=== PATIENT | female | born 1985 | race Caucasian/White ===

== ENCOUNTER 2020-12-25 14:45 | Outpatient (CLI) | payer OTHER, SELFPAY ==
--- NOTE | 2020-12-25 14:54 | XR_ITS ---
WS: [id number] Exam: XR thoracic spine 3V* [id number] Date/Time of Exam: 12/25/2020 3:03 PM Reason For Exam: pain and injury No acute fracture or dislocation. Slight dextroscoliosis. Paraspinal soft tissues are unremarkable. XR/XR thoracic spine 3V* [id number] IMPRESSION: 1. Slight scoliosis otherwise negative T-spine study.
== END 2020-12-25 14:46 | disposition home or self-care (01) ==
LOC: RAD 14:49
PROVIDERS: PCP Family Medicine; Visit Provider Nurse Practitioner
DX: M41.84 Other forms of scoliosis, thoracic region (principal)
CPT/HCPCS: 72072

== ENCOUNTER 2023-03-19 12:44 | Emergency (ER) | payer OTHER, SELFPAY ==
[2023-03-19 13:06] VITALS: BP 131/79; PULSE 82; RESP 16; TEMP 36.7; O2SAT 100
--- NOTE | 2023-03-19 13:16 | XRR_ITS ---
PROCEDURE INFORMATION: Exam: XR Right Wrist Exam date and time: 03/19/2023 1:22 PM Age: 37 years old Clinical indication: Injury or trauma; Fall; Blunt trauma (contusions or hematomas); Wrist; Right TECHNIQUE: Imaging protocol: Radiologic exam of the right wrist. Views: 3 or more views. COMPARISON: No relevant prior studies available. FINDINGS: Bones/joints: Osseous structures are intact. No fracture or malalignment. Visualized joint surfaces are preserved. Soft tissues: Unremarkable. XR/XR wrist RT min 3V* [id number] IMPRESSION: Negative exam. No acute bony abnormalities.
--- NOTE | 2023-03-19 13:16 | W.ED.UPPEXIN ---
HPI - Extremity Injury (Upper) General: Chief Complaint: Extremity Injury, Upper Stated Complaint: right wrist injury, WC Time Seen by Provider: 03/19/23 13:12 Source: patient Mode of arrival: ambulatory Limitations: no limitations History of Present Illness: Patient is a 37-year-old female presents to ED today with complaint of pain and bruising to her right forearm that she sustained yesterday when she went to grab a pole and accidentally struck the pole with the forearm. This reportedly is a workers comp injury. complaint: injury to: right and forearm Onset (ago): day(s) (yesterday) Other Extremity Injury: Right: forearm Other injuries: none Place: work Severity: mild Relieving factors: none Exacerbating factors: none Context: direct blow Associated symptoms: Denies weakness in extremities Review of Systems Musc: Reports: extremity pain (R forearm); Denies: extremity swelling, joint pain or joint swelling Neuro: Denies: numbness in extremities, weakness in extremities or sensory changes [facility] ED PFSH: Medical History Low back strain Social History Smoking and tobacco status: current some day smoker Physical Exam Const: COMMON NORMALS: no acute distress, average body habitus, patient oriented x3, no limitations, alert and well nourished Extremity: COMMON NORMALS: full ROM, capillary refill normal, no joint enlargement, no clubbing, cyanosis or edema, no calf tenderness and no pedal edema RIGHT UPPER EXTREMITY: Yes lower arm Right lower arm: Yes neurovascular exam (normal) and Yes wrist Right wrist: Yes ROM (normal) and Yes neurovascular exam (normal) EXTREMITY IMAGE (FRONT): 1. small amount of ecchymosis Neuro: COMMON NORMALS: patient oriented x3, moves all extremities, no focal motor deficits and no sensory deficits noted SENSORIUM/ORIENTATION: Yes alert Course Vital Signs: Vital signs: Vital Signs Temperature 98.0 F 03/19/23 13:06 Pulse Rate 82 03/19/23 13:06 Respiratory Rate 16 03/19/23 13:06 Blood Pressure 131/79 03/19/23 13:06 Pulse Oximetry 100 03/19/23 13:06 Oxygen Delivery Me thod Room Air 03/19/23 13:06 MDM - Extremity Injury (Upper) Medical Decision Making XR normal. Will follow up with Worker's Comp. Discharge Plan Discharge Patient Disposition: Home Clinical Impression: Contusion of forearm Qualifiers: Encounter type: initial encounter Laterality: right Qualified Code(s): S50.11XA - Contusion of right forearm, initial encounter Condition: Stable Prescriptions: No Action naproxen [Naprosyn] 500 mg tablet 500 mg PO BID Qty: 60 1RF Discharge Orders: Discharge ED (Routine); Ordered 03/19/23 Ordered By: Amarilis Hutson Referrals: Williams Madrid MD [Primary Care Provider] - Patient Instructions: Contusion Coding Level of Care Code ED Deposition Reporter for Nasra Deluca
== END 2023-03-19 14:37 | disposition home or self-care (01) ==
PROVIDERS: Emergency Provider Physician Assistant; PCP Family Medicine
DX: S50.11XA Contusion of right forearm, initial encounter (principal); F17.210 Nicotine dependence, cigarettes, uncomplicated; W22.8XXA Striking against or struck by other objects, initial encounter
CPT/HCPCS: 73110; 99283

== ENCOUNTER 2024-03-25 21:43 | Emergency (ER) | payer OTHER, SELFPAY ==
[2024-03-25 21:56] VITALS: BP 147/86; PULSE 71; RESP 17; TEMP 36.7; O2SAT 100; BMI 23.5
--- NOTE | 2024-03-25 22:11 | XRR_ITS ---
PROCEDURE INFORMATION: Exam: XR Right Wrist Exam date and time: 03/25/2024 10:43 PM Age: 38 years old Clinical indication: Pain; Wrist; Right; Additional info: RT wrist pain after feeling pop TECHNIQUE: Imaging protocol: Radiologic exam of the right wrist. Views: 3 or more views. COMPARISON: No relevant prior studies available. FINDINGS: Bones/joints: Normal. Soft tissues: Normal. XR/XR wrist RT min 3V* [id number] IMPRESSION: No acute findings.
--- NOTE | 2024-03-25 23:15 | W.ED.EXTPRO ---
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 She felt a pop in her right wrist. She has swelling now. No numbness or tingling. No impact injury. Associated symptoms: Deny chest pain or fever(s) Review of Systems Const: Denies: fever(s) Card: Denies: chest pain Resp: Denies: dyspnea GI: Denies: abdominal pain PFSH ED PFSH: Medical History Low back strain Social History Smoking and tobacco/nicotine status: current some day tobacco/nicotine user Physical Exam Const: GENERAL APPEARANCE: cooperative; not ill appearing HENMT: COMMON NORMALS: normocephalic HEAD & SCALP: normocephalic EXTERNAL EAR: Yes external ear abnormal Chest: CHEST: Yes Symmetrical chest wall rise Cardio: COMMON NORMALS: regular rate and regular rhythm RATE: regular rate RHYTHM: regular rhythm Extremity: NARRATIVE EXTREMITY EXAM: Swelling of the dorsum of the hand and wrist. There is tenderness to palpation over the first and second carpal row. No deformity. Course Vital Signs: Vital signs: Vital Signs Temperature 98.1 F 03/25/24 21:56 Pulse Rate 72 03/25/24 23:53 Respiratory Rate 16 03/25/24 23:53 Blood Pressure 147/86 03/25/24 21:56 Pulse Oximetry 98 03/25/24 23:53 Oxygen Delivery Me thod Room Air 03/25/24 21:56 MDM - Extremity (Nontraumatic) Medical Decision Making The patient does have objective swelling to the dorsum of the wrist and hand, less so to the palmar surface. Lab Data Radiology Impressions Wrist X-Ray 03/25/24 22:11 IMPRESSION: No acute findings. Laboratory Results Urine Opiates Screen Negative ng/mL (Negative) 03/25/24 23:00 Ur Barbiturates Screen Negative ng/mL (Negative) 03/25/24 23:00 Ur Phencyclidine Scrn Negative ng/mL (Negative) 03/25/24 23:00 Ur Amphetamines Screen Negative ng/mL (Negative) 03/25/24 23:00 U Benzodiazepines Scrn Negative ng/mL (Negative) 03/25/24 23:00 Urine Cocaine Screen Negative ng/mL (Negative) 03/25/24 23:00 U Marijuana (THC) Screen Negative ng/mL (Negative) 03/25/24 23:00 All radiology interpretation(s) finalized by discharge Discharge Plan Discharge Patient Disposition: Home Clinical Impression: Sprain and strain of wrist Condition: Stable Prescriptions: New ketorolac 10 mg tablet 10 mg PO TID PRN (Reason: pain) Qty: 10 0RF Discontinued naproxen [Naprosyn] 500 mg tablet 500 mg PO BID Qty: 60 1RF Discharge Orders: Discharge ED (Routine); Ordered 03/25/24 Ordered By: Bryan Chacon Referrals: Williams Madrid MD [Primary Care Provider] - 4-7 days Patient Instructions: Wrist Sprain (ED), Opioid Safety, Pain Management Activity Restrictions/Additional Instructions: Brace the wrist with any activity x 1 week. See your doctor in follow-up. Medication as needed for pain. Ice will help, particularly in the first 48 hours. Return for any problems. Coding Level of Care Code ED Talent Acquisition Assistant for Nasra Deluca
[2024-03-25 23:22] LABS: Amphetamines Screen Urine Negative (Negative); Barbiturates Screen Urine Negative (Negative); Benzodiazepines Screen Urine Negative (Negative); Cocaine Screen Urine Negative (Negative); PCP Screen Urine Negative (Negative); THC Screen Urine Negative (Negative)
--- NOTE | 2024-03-25 23:35 | PC.NURSE ---
Pt sent home with 2xtabs 5/[address] Chacon's orders.
[2024-03-25 23:38] LABS: Opiate Screen Urine Negative (Negative)
[2024-03-25 23:53] VITALS: PULSE 72; RESP 16; O2SAT 98
== END 2024-03-25 23:40 | disposition home or self-care (01) ==
PROVIDERS: Emergency Provider Emergency Medicine; PCP Family Medicine
DX: S63.501A Unspecified sprain of right wrist, initial encounter (principal); S66.911A Strain of unspecified muscle, fascia and tendon at wrist and hand level, right hand, initial encounter; Z72.0 Tobacco use; X50.0XXA Overexertion from strenuous movement or load, initial encounter; Y93.F2 Activity, caregiving, lifting; Y99.0 Civilian activity done for income or pay
CPT/HCPCS: 73110; 80306; 99283

== ENCOUNTER 2025-05-20 08:59 | Observation (INO) | payer OTHER, SELFPAY ==
[2025-05-20 09:15] VITALS: BP 120/76; PULSE 86; RESP 17; TEMP 36.7; O2SAT 100; BMI 24.7
--- NOTE | 2025-05-20 09:21 | W.ED.SKABFB ---
Documented by User: PRECIOUS Colvin 05/20/25 10:47 HPI - Skin/Abscess/Foreign Bdy General: Chief complaint: Skin/Abscess/Foreign Body Stated complaint: Blister on Left Boob Time Seen by Provider: 05/20/25 09:01 Source: patient Mode of arrival: ambulatory Limitations: no limitations History of Present Illness: Patient is a 39-year-old female presents to ED today for evaluation of a left breast abscess. She began noticing symptoms last week and was placed on Bactrim on Tuesday. She has been compliant with this medication and has been on this over the past 48 hours and is continuing to fail outpatient therapy. She was seen back at the walk-in clinic today and referred to the emergency department. She did report an nipple piercing 2 months ago but has not had any issues with it until now. MD complaint: abscess/boil Onset (ago): day(s) Tetanus up to date: yes Location: chest (L breast) Severity: severe Pain Consistency: constant Relieving factors: none Exacerbating factors: none Associated symptoms: Deny chills, fever(s), nausea or vomiting Treatments prior to arrival: antibiotic Related Data Home Medications ?Medication ?Instructions ?Recorded ?Confirmed ibuprofen 200 mg tablet (Advil) 600 mg PO Q6H PRN Pain 05/20/25 05/20/25 sulfamethoxazole 800 1 tab PO Q12H 05/20/25 05/20/25 mg-trimethoprim 160 mg tablet Allergies Allergy/AdvReac Type Severity Reaction Status Date / Time Influenza Virus Vaccines Allergy ADR-Vomitin Verified 05/20/25 09:20 g Review of Systems Const: Denies: fever(s), chills, body aches, fatigue or malaise GI: Denies: nausea or vomiting Skin/Breast: Reports: breast pain and breast swelling (L breast abscess) [facility] ED PFSH: Medical History Low back strain Social History Smoking and tobacco/nicotine status: current some day tobacco/nicotine user Physical Exam Const: COMMON NORMALS: no acute distress, average body habitus, patient oriented x3, no limitations, healthy appearing, alert and well nourished Chest: BREAST/AXILLA PALPATION: Yes breast lump (abscess) NIPPLE/AREOLA: Yes nipple abnormal and Yes areola abnormal OTHER: pt has a significant abscess and surrounding cellulitis to her L breast; she does have a nipple piercing; most fluctuant region is her medial areola; no active drainage; large amount of induration Resp: COMMON NORMALS: normal respiratory effort and clear to auscultation bilaterally AUSCULTATION: clear to auscultation bilaterally Cardio: COMMON NORMALS: regular rate and regular rhythm RATE: regular rate RHYTHM: regular rhythm Neuro: COMMON NORMALS: patient oriented x3 SENSORIUM/ORIENTATION: Yes alert Skin: NARRATIVE SKIN EXAM: see above Course Consultations: Consultation #1: Dr. Pike-requesting to see if IR can drain abscess; will admit to hospital for IV abx following this Consultation #2: Dr. Justice-will drain abscess here in ED Vital Signs: Vital signs: Vital Signs Temperature 97.9 F 05/20/25 12:14 Pulse Rate 82 05/20/25 12:14 Respiratory Rate 16 05/20/25 12:14 Blood Pressure 101/65 05/20/25 12:14 Pulse Oximetry 99 05/20/25 12:14 Oxygen Delivery Me thod Room Air 05/20/25 12:14 MDM - Skin/Abscess/Foreign Bdy Medicial Decision Making Patient is a 39-year-old female here for a significant left sided breast abscess. She has failed outpatient therapy with oral Bactrim. Spoke to general surgery who is requesting that IR attempt to drain. Dr. Justice kindly will come and evaluate patient here in the emergency department and attempt drainage. Dr. Bridges will admit for IV antibiotics. Medical Records I reviewed the patient's medical records. Lab Data I reviewed the patient's lab results. 05/20/25 09:56 05/20/25 09:56 Radiology Impressions Breast Ultrasound 05/20/25 09:32 IMPRESSION: Subareolar LEFT breast abscess. Recommend follow-up to resolution. Aspiration is pending. ADDENDUM: 05/20/25 1118 IMPRESSION: Ultrasound-guided aspiration of the LEFT breast abscess with 10-12 cc of bloody purulent fluid aspirated Cyst Aspiration Ultrasound 05/20/25 10:10 IMPRESSION: Ultrasound-guided aspiration of the LEFT breast abscess with 10-12 cc of bloody purulent fluid aspirated Laboratory Results WBC 11.92 10^3/uL (3.29-11.43) H 05/20/25 09:56 RBC 3.61 10^6/uL (3.85-5.65) L 05/20/25 09:56 Hgb 12.00 g/dL (11.27-16.99) 05/20/25 09:56 Hct 35.8 % (36-47) L 05/20/25 09:56 MCV 99.2 fl (85-98) H 05/20/25 09:56 MCH 33.2 pg (27-33) H 05/20/25 09:56 MCHC 33.5 g/dL (30-55) 05/20/25 09:56 RDW 12.5 % (12.1-15.1) 05/20/25 09:56 Plt Count 239 10^3/cmm (157-399) 05/20/25 09:56 MPV 10.9 fL (7.4-10.4) H 05/20/25 09:56 Neut % (Auto) 85.0 % 05/20/25 09:56 Lymph % (Auto) 9.1 % 05/20/25 09:56 Swisher % (Auto) 4.4 % 05/20/25 09:56 Eos % (Auto) 0.8 % 05/20/25 09:56 Baso % (Auto) 0.3 % 05/20/25 09:56 Neut # (Auto) 10.14 10^3/uL (1.8-7.7) H 05/20/25 09:56 Lymph # (Auto) 1.1 10^3/uL (0.8-4.8) 05/20/25 09:56 Swisher # (Auto) 0.5 10^3/uL (0.2-0.9) 05/20/25 09:56 Eos # (Auto) 0.1 10^3/uL (0.0-0.8) 05/20/25 09:56 Baso # (Auto) 0.0 10^3/uL (0.0-0.1) 05/20/25 09:56 Nucleated RBC % (auto) 0 % 05/20/25 09:56 Nucleated RBCs # 0.0 /100WBC 05/20/25 09:56 Sodium 137 mmol/L (136-145) 05/20/25 09:56 Potassium 3.6 mmol/L (3.5-5.1) 05/20/25 09:56 Chloride 102 mmol/L (98-107) 05/20/25 09:56 Carbon Dioxide 20 mmol/L (22-29) L 05/20/25 09:56 Anion Gap 18.6 (5-19) 05/20/25 09:56 BUN 8 mg/dL (6-20) 05/20/25 09:56 Creatinine 0.7 mg/dL (0.5-0.9) 05/20/25 09:56 GFR Calculation 93.2 mL/min (90-130) 05/20/25 09:56 Glucose 87 mg/dL (65-115) 05/20/25 09:56 Calculated Osmolality 282 mOsm/kg (285-295) L 05/20/25 09:56 Calcium 9.0 mg/dL (8.5-10.5) 05/20/25 09:56 Total Bilirubin 0.7 mg/dL (0.15-1.2) 05/20/25 09:56 AST 11 U/L (0-32) 05/20/25 09:56 ALT 8 U/L (0-33) 05/20/25 09:56 Alkaline Phosphatase 149 U/L (35-105) H 05/20/25 09:56 C-Reactive Protein 46.7 mg/L (0.0-4.9) H 05/20/25 09:56 Total Protein 7.8 g/dL (6.6-8.7) 05/20/25 09:56 Albumin 4.1 g/dL (3.5-5.2) 05/20/25 09:56 Globulin 3.7 g/dL (1.3-4.6) 05/20/25 09:56 All radiology interpretation(s) finalized by discharge Discharge Plan Discharge Patient Disposition: Placed in Observation Admit Provider: Stan Bridges Clinical Impression: Abscess of left breast Coding Level of Care Code ED Drama Professor for Chg Fwd Documented by User: Ozzy Garcia DO 05/20/25 13:20 HPI - Skin/Abscess/Foreign Bdy General: Chief complaint: Skin/Abscess/Foreign Body Stated complaint: Blister on Left Boob Time Seen by Provider: 05/20/25 09:01 Related Data Home Medications ?Medication ?Instructions ?Recorded ?Confirmed ibuprofen 200 mg tablet (Advil) 600 mg PO Q6H PRN Pain 05/20/25 05/20/25 sulfamethoxazole 800 1 tab PO Q12H 05/20/25 05/20/25 mg-trimethoprim 160 mg tablet Allergies Allergy/AdvReac Type Severity Reaction Status Date / Time Influenza Virus Vaccines Allergy ADR-Vomitin Verified 05/20/25 09:20 g PFSH ED PFSH: Medical History Low back strain Social History Smoking and tobacco/nicotine status: current some day tobacco/nicotine user Course Vital Signs: Vital signs: Vital Signs Temperature 97.9 F 05/20/25 12:14 Pulse Rate 82 05/20/25 12:14 Respiratory Rate 16 05/20/25 12:14 Blood Pressure 101/65 05/20/25 12:14 Pulse Oximetry 99 05/20/25 12:14 Oxygen Delivery Me thod Room Air 05/20/25 12:14 MDM - Skin/Abscess/Foreign Bdy Medicial Decision Making Patient is a 39-year-old female here for a significant left sided breast abscess. She has failed outpatient therapy with oral Bactrim. Spoke to general surgery who is requesting that IR attempt to drain. Dr. Vinh ornelas will come and evaluate patient here in the emergency department and attempt drainage. Dr. Bridges will admit for IV antibiotics. Chart reviewed and patient discussed with midlevel. Agree with assessment and plan. Lab Data 05/20/25 09:56 05/20/25 09:56 Radiology Impressions Breast Ultrasound 05/20/25 09:32 IMPRESSION: Subareolar LEFT breast abscess. Recommend follow-up to resolution. Aspiration is pending. ADDENDUM: 05/20/25 1118 IMPRESSION: Ultrasound-guided aspiration of the LEFT breast abscess with 10-12 cc of bloody purulent fluid aspirated Cyst Aspiration Ultrasound 05/20/25 10:10 IMPRESSION: Ultrasound-guided aspiration of the LEFT breast abscess with 10-12 cc of bloody purulent fluid aspirated Laboratory Results WBC 11.92 10^3/uL (3.29-11.43) H 05/20/25 09:56 RBC 3.61 10^6/uL (3.85-5.65) L 05/20/25 09:56 Hgb 12.00 g/dL (11.27-16.99) 05/20/25 09:56 Hct 35.8 % (36-47) L 05/20/25 09:56 MCV 99.2 fl (85-98) H 05/20/25 09:56 MCH 33.2 pg (27-33) H 05/20/25 09:56 MCHC 33.5 g/dL (30-55) 05/20/25 09:56 RDW 12.5 % (12.1-15.1) 05/20/25 09:56 Plt Count 239 10^3/cmm (157-399) 05/20/25 09:56 MPV 10.9 fL (7.4-10.4) H 05/20/25 09:56 Neut % (Auto) 85.0 % 05/20/25 09:56 Lymph % (Auto) 9.1 % 05/20/25 09:56 Swisher % (Auto) 4.4 % 05/20/25 09:56 Eos % (Auto) 0.8 % 05/20/25 09:56 Baso % (Auto) 0.3 % 05/20/25 09:56 Neut # (Auto) 10.14 10^3/uL (1.8-7.7) H 05/20/25 09:56 Lymph # (Auto) 1.1 10^3/uL (0.8-4.8) 05/20/25 09:56 Swisher # (Auto) 0.5 10^3/uL (0.2-0.9) 05/20/25 09:56 Eos # (Auto) 0.1 10^3/uL (0.0-0.8) 05/20/25 09:56 Baso # (Auto) 0.0 10^3/uL (0.0-0.1) 05/20/25 09:56 Nucleated RBC % (auto) 0 % 05/20/25 09:56 Nucleated RBCs # 0.0 /100WBC 05/20/25 09:56 Sodium 137 mmol/L (136-145) 05/20/25 09:56 Potassium 3.6 mmol/L (3.5-5.1) 05/20/25 09:56 Chloride 102 mmol/L (98-107) 05/20/25 09:56 Carbon Dioxide 20 mmol/L (22-29) L 05/20/25 09:56 Anion Gap 18.6 (5-19) 05/20/25 09:56 BUN 8 mg/dL (6-20) 05/20/25 09:56 Creatinine 0.7 mg/dL (0.5-0.9) 05/20/25 09:56 GFR Calculation 93.2 mL/min (90-130) 05/20/25 09:56 Glucose 87 mg/dL (65-115) 05/20/25 09:56 Calculated Osmolality 282 mOsm/kg (285-295) L 05/20/25 09:56 Calcium 9.0 mg/dL (8.5-10.5) 05/20/25 09:56 Total Bilirubin 0.7 mg/dL (0.15-1.2) 05/20/25 09:56 AST 11 U/L (0-32) 05/20/25 09:56 ALT 8 U/L (0-33) 05/20/25 09:56 Alkaline Phosphatase 149 U/L (35-105) H 05/20/25 09:56 C-Reactive Protein 46.7 mg/L (0.0-4.9) H 05/20/25 09:56 Total Protein 7.8 g/dL (6.6-8.7) 05/20/25 09:56 Albumin 4.1 g/dL (3.5-5.2) 05/20/25 09:56 Globulin 3.7 g/dL (1.3-4.6) 05/20/25 09:56 Discharge Plan Discharge Patient Disposition: Placed in Observation Admit Provider: Stan Bridges Clinical Impression: Abscess of left breast Coding Level of Care Code ED Drama Professor for Chg Fwramesh
--- NOTE | 2025-05-20 09:32 | US_ITS ---
WS: [id number] ULTRASOUND BREAST LEFT TECHNIQUE: Ultrasound left breast focused area of concern. CLINICAL INFORMATION: abscess COMPARISON: None. FINDINGS: Ultrasound subareolar LEFT breast. Complex appearing fluid collection with internal debris and septations compatible with breast abscess. This measures 3.5 x 2.7 cm. Abscess aspiration is pending for cultures. US/US breast LT limited* [id number] IMPRESSION: Subareolar LEFT breast abscess. Recommend follow-up to resolution. Aspiration i s pending.
[2025-05-20 10:09] LABS: Basophils % 0.3 %; Eosinophils # 0.1 10^3/uL (0.0-0.8); Eosinophils % 0.8 %; Hematocrit 35.8 % (36-47); Lymphocytes # 1.1 10^3/uL (0.8-4.8); Lymphocytes % 9.1 %; Mean Corpuscular HGB Conc 33.5 g/dL (30-55); Mean Corpuscular Hemoglobin 33.2 pg (27-33); Mean Corpuscular Volume 99.2 fl (85-98); Mean Platelet Volume 10.9 fL (7.4-10.4); Monocytes # 0.5 10^3/uL (0.2-0.9); Monocytes % 4.4 %; Neutrophils # 10.14 10^3/uL (1.8-7.7); Nucleated Red Blood Cells % 0 %; Platelet Count 239 10^3/cmm (157-399); Red Blood Count 3.61 10^6/uL (3.85-5.65); Red Cell Distribution Width 12.5 % (12.1-15.1); White Blood Count 11.92 10^3/uL (3.29-11.43)
--- NOTE | 2025-05-20 10:10 | US_ITS ---
WS: [id number] ULTRASOUND-GUIDED LEFT BREAST ABSCESS ASPIRATION INDICATION: Abscess TECHNIQUE: The procedure including risks, benefits, and complications were discussed with the patient who agreed to proceed. Timeout was performed. Using sterile technique patient was prepped and draped in usual sterile fashion. After 1% lidocaine, using ultrasound guidance, a 4 Jama[place] Yueh catheter was inserted into the abscess. Approximately 10 to 12 cc of purulent bloody fluid was aspirated. No immediate complications. Fluid was sent for cultures. US/[place] [id number] IMPRESSION: Ultrasound-guided aspiration of the LEFT breast abscess with 10-12 cc of bloody purulent fluid aspirated
[2025-05-20] MEDS: vancomycin 1,250 MG/250 ML PIGGYBACK 166.67 MG IV (10:18)
[2025-05-20 10:25] LABS: Alanine Aminotransferase 8 U/L (0-33); Albumin Level 4.1 g/dL (3.5-5.2); Alkaline Phosphatase 149 U/L (35-105); Anion Gap 18.6 (5-19); Aspartate Amino Transferase 11 U/L (0-32); Blood Urea Nitrogen 8 mg/dL (6-20); C Reactive Protein 46.7 mg/L (0.0-4.9); Carbon Dioxide 20 mmol/L (22-29); Chloride 102 mmol/L (98-107); Creatinine Clr Calc Pharmacy 111.7876; Globulin 3.7 g/dL (1.3-4.6); Glomerular Filtration Rate 93.2 mL/min (90-130); Glucose 87 mg/dL (65-115); Osmolality Calculated 282 mOsm/kg (285-295); Potassium 3.6 mmol/L (3.5-5.1); Sodium 137 mmol/L (136-145); Total Bilirubin 0.7 mg/dL (0.15-1.2); Total Protein 7.8 g/dL (6.6-8.7)
[2025-05-20] MEDS: morphine 4 mg/mL SDV 1 mL IVP (11:05)
[2025-05-20] MEDS: ondansetron 2 mg/ML SDV 2 mL 4 MG IVP (11:05)
--- NOTE | 2025-05-20 11:21 | P.HP_ITS ---
Providers/Chief Complaint 2 Admitting Physician: Stan Bridges MD Primary Care Provider: Williams Madrid MD Chief Complaint: Blister on Left Boob History of Present Illness Mariela Smith is a 39 year old female who presented with a left breast abscess status post nipple piercing. Patient reports increasing swelling redness and pain over the left nipple. There is an area of fluctuance. IR performed an ultrasound-guided aspiration of the abscess cavity (12 cc of purulent fluid obtained). Patient started on linezolid due to allergy to vancomycin. Patient does not want to remove her nipple piercing. Medications/Allergies Home Medications ?Medication ?Instructions ?Recorded ?Confirmed ?Last Taken ?Type ibuprofen 200 mg tablet (Advil) 600 mg PO Q6H PRN Pain 05/20/25 05/20/25 05/19/25 20:35 History sulfamethoxazole 800 1 tab PO Q12H 05/20/2505/2005/19/25 20:00 History mg-trimethoprim 160 mg tablet Allergies Allergy/AdvReac Type Severity Reaction Status Date / Time Influenza Virus Vaccines Allergy ADR-Vomitin Verified 05/20/25 09:20 g PFSH Acute 2 PFSH: Medical History Low back strain Social History Smoking and tobacco/nicotine status: current some day tobacco/nicotine user Vitals/I&O/Wt Last Vital Signs Temp 98.1 F 05/20/25 09:15 Pulse 86 05/20/25 09:15 Resp 17 05/20/25 09:15 BP 120/76 05/20/25 09:15 Pulse Ox 100 05/20/25 09:15 O2 Del Method Room Air 05/20/25 09:15 Weight last 48 hrs Weight 158 lb Physical Exam 2 Narrative: Chest: Unlabored breathing room air. No lymphadenopathy. Left breast cellulitis around the nipple. Area of fluctuance decrease after IR aspiration. Left nipple piercing still in place. Heart: Regular rate and rhythm. Abdomen: Soft, nontender, nondistended. No masses or lymphadenopathy. Data 05/20/25 09:56 05/20/25 09:56 Micro: Microbiology 05/20/25 10:01 Blood Culture - Preliminary Blood SPECIMEN COLLECTED 05/20/25 09:56 Blood Culture - Preliminary Blood SPECIMEN COLLECTED A&P Assessment and plan (1) Abscess of left breast: Plan 39-year-old female who presented with a left breast abscess and cellulitis status post piercing of left nipple. IR successfully aspirated abscess under ultrasound guidance and obtained 12 cc of purulent fluid. Starting linezolid. I had an extensive discussion with the patient regarding the need to remove the left nipple piercing. Patient has elected AGAINST MEDICAL ADVICE to keep her left nipple piercing. Will keep for 24 hours of IV antibiotics and reassess tomorrow. PDMP PDMP Reviewed: Not Reviewed Attestations 2 Medical Necessity Statement*: IV antibiotic Coding Level of Care Code 81488 Diagnoses Abscess of left breast N61.1
[2025-05-20 12:14] VITALS: BP 101/65; PULSE 82; RESP 16; TEMP 36.6; O2SAT 99
--- NOTE | 2025-05-20 15:16 | PC.NURSE ---
Dr. Pike verbally ordered a Regular diet on the patient
[2025-05-20 15:33] VITALS: BP 110/72; PULSE 78; RESP 16; TEMP 37.4; O2SAT 99
[2025-05-20] MEDS: linezolid premix 600 MG/300 ML PREMIX 300 MG IV (15:55)
[2025-05-20 21:52] VITALS: BP 99/62; PULSE 90; RESP 17; TEMP 36.6; O2SAT 94
[2025-05-21] VITALS: BP 102/64; PULSE 88; RESP 17; TEMP 36.6; O2SAT 94
[2025-05-21 04:25] VITALS: BP 103/68; PULSE 89; RESP 17; TEMP 36.6; O2SAT 94
[2025-05-21] MEDS: linezolid premix 600 MG/300 ML PREMIX 300 MG IV (05:04)
--- NOTE | 2025-05-21 07:29 | P.PN_ITS ---
Subjective 2 Subjective: Feeling better No fever Cellulitis improved Patient still has the piercing and has elected to keep it AGAINST MEDICAL ADVICE Vitals/I&O/Wt Last Vital Signs Temp 97.9 F 05/21/25 04:25 Pulse 89 05/21/25 04:25 Resp 17 05/21/25 04:25 BP 103/68 05/21/25 04:25 Pulse Ox 94 05/21/25 04:25 O2 Del Method Room Air 05/20/25 15:33 05/20/25 05/21/25 05/21/25 22:59 06:59 14:59 Intake Total 1030 / 1030 2009 Balance 1030 / 1030 2009 Weight last 48 hrs Weight 158 lb Weight 158 lb Physical Exam 2 Narrative: Chest: Unlabored breathing room air. No lymphadenopathy. Cellulitis around left nipple improving. Small area of fluctuance. Heart: Regular rate and rhythm. Abdomen: Soft, nontender, nondistended. No masses or lymphadenopathy. Data 05/20/25 09:56 05/20/25 09:56 Micro: Microbiology 05/20/25 11:02 Gram Stain - Final Breast - #1 05/20/25 10:01 Blood Culture - Preliminary Blood SPECIMEN COLLECTED 05/20/25 09:56 Blood Culture - Preliminary Blood SPECIMEN COLLECTED A&P Assessment and plan (1) Abscess of left breast: Plan 39-year-old female who presented with a left breast abscess status post piercing. Patient has elected AGAINST MEDICAL ADVICE to keep the foreign object. She understands she will not be able to clear up her infection appropriately if she keeps the ring, she still chooses to keep her piercing in place. Will check labs this morning. If white count is down we will plan to discharge on oral antibiotics. PDMP PDMP Reviewed: Not Reviewed Attestations 2 Medical Necessity Statement*: N/A Coding Level of Care Code 44750 Diagnoses Abscess of left breast N61.1
[2025-05-21 08:00] VITALS: BP 104/68; PULSE 78; RESP 16; TEMP 36.7; O2SAT 97
--- NOTE | 2025-05-21 10:25 | PC.CHAP ---
Pastoral Care Encounter/Spiritual Assessment Type of Contact [] Declined pullman clerk visit [] Patient/Family/Request visit [] Outpatient visit [] Follow-up visit [] Physician referral [] Code/Alert [x] Routine visit [] Staff referral [] Actively dying [] Patient sleeping [] Family support [] [] Out of room [] Palliative care [] [] Receiving care in room [] Pre-surgical visit [] Trauma [] Long length of stay [] ICU visit [] Other: Relational/Emotional Strength [x] Patient feels connected with others/family/visitors/staff [] Distress [] Loneliness/isolation [] Abandonment Spirituality of Patient [x] Person of Estefanía [] Attends Buddhism of their Estefanía [x] Believes in Prayer [] Reads Bible or Samaritan materials [] There are Spiritual issues to be addressed Leadership Intern Interventions [x] Prayer [x] Active listening [] Non-anxious presence [x] Spiritual/emotional support [] Crisis/trauma care [] Spiritual counseling [] Bereavement support [] Provided bereavement packet [] Provided Bible/devotional materials [] Provided toy/stuffed animal, coloring book to patient or family member [] Provided Communion [] Anointing/[place] [] Salvation [x] Completed spiritual assessment [] Other: Impact on Illness or Injury [] Angry [] Fearful [] Anxious [] Often cries [] Exhaustion [] Unable to work [] Unable to attend pentecostal [] Unable to walk/stand [] Unable to read [] Unable to drive [] Unable to eat/drink [] Unable to sleep [] Unable to be with family [] Patient intubated [] Other: Summary Time spent with patient 5 min
[2025-05-21 11:06] LABS: Basophils % 0.2 %; Eosinophils # 0.2 10^3/uL (0.0-0.8); Eosinophils % 1.4 %; Hematocrit 35.1 % (36-47); Lymphocytes # 1.2 10^3/uL (0.8-4.8); Lymphocytes % 11.7 %; Mean Corpuscular HGB Conc 33.9 g/dL (30-55); Mean Corpuscular Volume 100.3 fl (85-98); Mean Platelet Volume 10.8 fL (7.4-10.4); Monocytes # 0.5 10^3/uL (0.2-0.9); Monocytes % 4.9 %; Neutrophils # 8.45 10^3/uL (1.8-7.7); Neutrophils % 81.4 %; Nucleated Red Blood Cells % 0 %; Platelet Count 258 10^3/cmm (157-399); Red Cell Distribution Width 12.4 % (12.1-15.1); White Blood Count 10.38 10^3/uL (3.29-11.43)
[2025-05-21 11:41] VITALS: BP 114/72; PULSE 80; RESP 16; TEMP 36.4; O2SAT 97
--- NOTE | 2025-05-21 12:42 | P.DS_ITS ---
Discharge Providers Date of Admission: 05/20/25 10:58 Date of Discharge: May 21, 2025 Attending Provider at Admission: Stan Bridges MD Attending Provider at Discharge: Stan Bridges MD Primary Care Provider: Williams Madrid MD Diagnoses at Discharge Discharge Diagnosis (1) Abscess of left breast: Status: Resolved Reason for Visit Reason for Visit: Blister on Left Boob Hospital Course Hospital Course 39-year-old female admitted with a left breast abscess. Treated with antibiotics. IR drained abscess percutaneously using ultrasound. Advised patient to remove piercing. Patient decided not to remove it AGAINST MEDICAL ADVICE. Patient was discharged the following day. Physical Exam Narrative: Chest: Improving left breast cellulitis. No fluctuance.. Heart: Regular rate and rhythm. Abdomen: Soft, nontender, nondistended. No masses or lymphadenopathy. Discharge Data Studies Completed and Pending Completed Studies During Hospitalization Category Date Time Status US breast LT limited* 82860 Stat Ultrasound 05/20/25 09:32 [place] [address] Stat Ultrasound 05/20/25 10:10 Completed Pending at discharge Category Date Time Status Abscess Culture and Gram Stain Stat Lab 05/20/25 11:02 Results Blood Culture Stat Lab 05/20/25 10:01 Results Radiology Impressions Breast Ultrasound 05/20/25 09:32 IMPRESSION: Subareolar LEFT breast abscess. Recommend follow-up to resolution. Aspiration is pending. ADDENDUM: 05/20/25 1118 IMPRESSION: Ultrasound-guided aspiration of the LEFT breast abscess with 10-12 cc of bloody purulent fluid aspirated Cyst Aspiration Ultrasound 05/20/25 10:10 IMPRESSION: Ultrasound-guided aspiration of the LEFT breast abscess with 10-12 cc of bloody purulent fluid aspirated Laboratory Results WBC 10.38 10^3/uL (3.29-11.43) 05/21/25 10:55 RBC 3.50 10^6/uL (3.85-5.65) L 05/21/25 10:55 Hgb 11.90 g/dL (11.27-16.99) 05/21/25 10:55 Hct 35.1 % (36-47) L 05/21/25 10:55 MCV 100.3 fl (85-98) H 05/21/25 10:55 MCH 34.0 pg (27-33) H 05/21/25 10:55 MCHC 33.9 g/dL (30-55) 05/21/25 10:55 RDW 12.4 % (12.1-15.1) 05/21/25 10:55 Plt Count 258 10^3/cmm (157-399) 05/21/25 10:55 MPV 10.8 fL (7.4-10.4) H 05/21/25 10:55 Neut % (Auto) 81.4 % 05/21/25 10:55 Lymph % (Auto) 11.7 % 05/21/25 10:55 [place] % (Auto) 4.9 % 05/21/25 10:55 Eos % (Auto) 1.4 % 05/21/25 10:55 Baso % (Auto) 0.2 % 05/21/25 10:55 Neut # (Auto) 8.45 10^3/uL (1.8-7.7) H 05/21/25 10:55 Lymph # (Auto) 1.2 10^3/uL (0.8-4.8) 05/21/25 10:55 [place] # (Auto) 0.5 10^3/uL (0.2-0.9) 05/21/25 10:55 Eos # (Auto) 0.2 10^3/uL (0.0-0.8) 05/21/25 10:55 Baso # (Auto) 0.0 10^3/uL (0.0-0.1) 05/21/25 10:55 Nucleated RBC % (auto) 0 % 05/21/25 10:55 Nucleated RBCs # 0.0 /100WBC 05/21/25 10:55 Sodium 137 mmol/L (136-145) 05/20/25 09:56 Potassium 3.6 mmol/L (3.5-5.1) 05/20/25 09:56 Chloride 102 mmol/L (98-107) 05/20/25 09:56 Carbon Dioxide 20 mmol/L (22-29) L 05/20/25 09:56 Anion Gap 18.6 (5-19) 05/20/25 09:56 BUN 8 mg/dL (6-20) 05/20/25 09:56 Creatinine 0.7 mg/dL (0.5-0.9) 05/20/25 09:56 GFR Calculation 93.2 mL/min (90-130) 05/20/25 09:56 Glucose 87 mg/dL (65-115) 05/20/25 09:56 Calculated Osmolality 282 mOsm/kg (285-295) L 05/20/25 09:56 Calcium 9.0 mg/dL (8.5-10.5) 05/20/25 09:56 Total Bilirubin 0.7 mg/dL (0.15-1.2) 05/20/25 09:56 AST 11 U/L (0-32) 05/20/25 09:56 ALT 8 U/L (0-33) 05/20/25 09:56 Alkaline Phosphatase 149 U/L (35-105) H 05/20/25 09:56 C-Reactive Protein 46.7 mg/L (0.0-4.9) H 05/20/25 09:56 Total Protein 7.8 g/dL (6.6-8.7) 05/20/25 09:56 Albumin 4.1 g/dL (3.5-5.2) 05/20/25 09:56 Globulin 3.7 g/dL (1.3-4.6) 05/20/25 09:56 Vitals Last Vital Signs Temp 97.6 F 05/21/25 11:41 Pulse 80 05/21/25 11:41 Resp 16 05/21/25 11:41 BP 114/72 05/21/25 11:41 Pulse Ox 97 05/21/25 11:41 O2 Del Method Room Air 05/21/25 11:41 Discharge Plan Discharge Patient Disposition: Home Condition: Stable Prescriptions: New linezolid 600 mg tablet 600 mg PO BID 14 Days Qty: 28 0RF Continued sulfamethoxazole-trimethoprim 800-160 mg tablet 1 tab PO Q12H ibuprofen [Advil] 200 mg Tablet 600 mg PO Q6H PRN (Reason: Pain) Discharge Orders: Discharge Order (Routine); Ordered 05/21/25 Ordered By: Stan Bridges Referrals: Stan Bridges MD [Physician, General Surgery] - 06/06/25 8:20 am Referral Note: Williams Madrid MD [Primary Care Provider, Family Practice] - 05/28/25 1:45 pm Discharge Diet: Usual diet Discharge Activity: Resume usual activity Patient Instructions: Linezolid (By mouth), Abscess (GEN), Opioid Safety, Patient Portal & [place] Instructions Activity Restrictions/Additional Instructions: 1. Return to ED for nausea, vomiting, fevers. 2. Finish 7 day course of antibiotics. 3. Removing all foreign objects is recommended. Stand Alone Forms: Work/School Release Discharge Attestations Time Spent in Discharge Care*: greater than 30 min Quality Metrics Clinical Quality Measures [ No reported AMI, CVA or VTE this stay] Coding Level of Care Code Acute Code for Chg Fwd Diagnoses Abscess of left breast N61.1
[2025-05-21 12:55] VITALS: BP 114/72; PULSE 80; RESP 16; TEMP 36.4; O2SAT 97
== END 2025-05-21 13:00 | disposition home or self-care (01) ==
LOC: ER 10:45 → MEDSURG 10:58
PROVIDERS: Admitting Provider Student in an Organized Health Care Education/Training Program; Emergency Provider Physician Assistant; PCP Family Medicine; Visit Provider Student in an Organized Health Care Education/Training Program
DX: N61.1 Abscess of the breast and nipple (principal); F17.200 Nicotine dependence, unspecified, uncomplicated
CPT/HCPCS: 19000; 36415; 76642; 76942; 80053; 85025; 86140; 87040; 87070; 87075; 87205; 96365; 96367; 96375; 99285; G0378; J2020; J2270; J2405; J3370